=== PATIENT | female | born 1995 | race Caucasian/White ===

== ENCOUNTER 2020-04-27 13:28 | Emergency (ER) | payer OTHER ==
[~2020-04-27] VITALS: Ht 170.2 cm; Wt 73.9 kg
[2020-04-27] MEDS ORDERED: PRAZ2CAP PO (13:40)
[2020-04-27] MEDS ORDERED: VITAD400CA PO (13:40)
[2020-04-27] MEDS ORDERED: LEXA1TAB2 PO (13:40)
[2020-04-27] MEDS ORDERED: GABA600T4 PO (13:40)
[2020-04-27 14:56] LABS: BASO % 0.3 % (0.0-1.0); EOS % 0.5 % (0.0-3.0); HEMATOCRIT 38.3 % (36.0-47.0); HEMOGLOBIN 12.8 g/dl (12.0-15.5); LYMPH # 1.8 10^3/uL (1.5-5.0); LYMPH % 28.3 % (24.0-44.0); MEAN CORPUSCULAR HEMOGLOBIN 29.5 pg (27.0-33.0); MEAN CORPUSCULAR HGB CONC 33.4 g/dl (32.0-36.5); MEAN CORPUSCULAR VOLUME 88.2 fl (80.0-96.0); MONO # 0.4 10^3/uL (0.0-0.8); NEUTROPHILS % 64.7 % (36.0-66.0); PLATELET COUNT, AUTOMATED 215 10^3/uL (150-450); RED BLOOD COUNT 4.34 10^6/uL (4.00-5.40); WHITE BLOOD COUNT 6.2 10^3/uL (4.0-10.0)
[2020-04-27 15:17] LABS: ALBUMIN 3.9 GM/DL (3.2-5.2); BILIRUBIN,DIRECT 0.1 MG/DL (0.0-0.2); BILIRUBIN,TOTAL 0.4 MG/DL (0.2-1.0); TOTAL PROTEIN 7.4 GM/DL (6.4-8.2)
[2020-04-27] MEDS ORDERED: ISOVUE-370 76% 100ML VIAL As Ordered ONE (15:28)
[2020-04-27] MEDS ORDERED: KETOROLAC 30 MG/ML 1ML VIAL IV ONE (15:45)
[2020-04-27] MEDS ORDERED: NS 1,000 ML IV ONE (15:45)
--- NOTE | 2020-04-27 16:02 | REP ---
INDICATION: rlq pain, nausea, loss appetite COMPARISON: None. TECHNIQUE: CT Scan of the abdomen and pelvis was performed with intravenous administration of 100 cc of Isovue 370, without oral contrast. FINDINGS: Lung bases: Mild patchy atelectasis or infiltrate is seen in the left lower lobe. Liver: Normal Gallbladder: Unremarkable. Spleen: Normal. Adrenals: Normal. Pancreas: Normal. Kidneys: Normal. Small and large bowel: Unremarkable. Free fluid: Mild scattered free fluid is seen throughout the pelvis. Abdominal aorta: No aneurysm or dissection. Adenopathy: None. Appendix: Not inflamed. Osseous structures: Unremarkable. Pelvis: No mass. IMPRESSION: Mild patchy atelectasis or infiltrate left lower lobe. Mild scattered free fluid throughout the pelvis. No other acute abnormalities detected. <Electronically signed by Homero Rogers > 04/27/20 [id number]
--- NOTE | 2020-04-27 17:34 | REP ---
INDICATION: rlq, right sided pelvic pain. COMPARISON: CT abdomen and pelvis today. TECHNIQUE: Transabdominal and transvaginal scanning performed. FINDINGS: Uterine dimensions are 6.6 x 3.0 x 4.0 cm. Endometrial echo is 5 mm in AP dimension and centrally placed. The bladder measures 3.1 x 5.1 x 8.4 cm. The right ovary has dimensions of 3.6 x 1.8 x 1.3 cm. It's Doppler flow is normal with a resistive index of 0.33. The left ovary dimensions are 2.2 x 1.6 x 1.7 cm. It's Doppler flow is normal with a resistive index of 0.61 There is no adnexal mass identified. Mild free fluid is seen in the cul-de-sac. IMPRESSION: No torsion or adnexal mass. Mild free fluid. <Electronically signed by Homero Rogers > 04/27/20 [id number]
[2020-04-27] MEDS ORDERED: KETO10TAB PO (17:46)
[2020-04-27] MEDS ORDERED: ONDA4TAB6 PO (17:46)
[2020-04-27] MEDS ORDERED: AMOX500T PO (17:46)
[2020-04-27 17:58] VITALS: BP 125/69
== END 2020-04-27 18:14 | disposition home or self-care (01) ==
LOC: M ED 13:28
DX: R10.9 Unspecified abdominal pain (principal); R11.0 Nausea; J18.9 Pneumonia, unspecified organism; Z20.828 Contact with and (suspected) exposure to other viral communicable diseases; F33.9 Major depressive disorder, recurrent, unspecified; F41.9 Anxiety disorder, unspecified; M25.569 Pain in unspecified knee; Z79.899 Other long term (current) drug therapy
CPT/HCPCS: 74177; 76830; 76856; 80047; 80076; 83690; 84702; 85025; 93976; 96361; 96374; 99284; J1885; Q9967; U0003

== ENCOUNTER 2020-07-20 09:59 | Emergency (ER) | payer OTHER ==
[~2020-07-20] VITALS: Ht 170.2 cm; Wt 68.2 kg
[~2020-07-20 09:59] MED LIST: AMOX500T PO; GABA600T4 PO; KETO10TAB PO; LEXA1TAB2 PO; ONDA4TAB6 PO; PRAZ2CAP PO; VITAD400CA PO
[2020-07-20] MEDS ORDERED: MULTTAB20 PO (10:10)
[2020-07-20] MEDS ORDERED: NS 1,000 ML IV ONE (10:30)
[2020-07-20 10:47] LABS: BASO % 0.3 % (0.0-1.0); EOS # 0.1 10^3/uL (0.0-0.5); EOS % 0.7 % (0.0-3.0); HEMOGLOBIN 12.1 g/dl (12.0-15.5); LYMPH # 1.6 10^3/uL (1.5-5.0); LYMPH % 23.3 % (24.0-44.0); MEAN CORPUSCULAR HEMOGLOBIN 29.1 pg (27.0-33.0); MEAN CORPUSCULAR HGB CONC 33.6 g/dl (32.0-36.5); MEAN CORPUSCULAR VOLUME 86.5 fl (80.0-96.0); MONO # 0.4 10^3/uL (0.0-0.8); MONO % 5.7 % (2.0-8.0); NEUTROPHILS # 4.8 10^3/uL (1.5-8.5); NEUTROPHILS % 69.6 % (36.0-66.0); PLATELET COUNT, AUTOMATED 241 10^3/uL (150-450); RED BLOOD COUNT 4.16 10^6/uL (4.00-5.40); WHITE BLOOD COUNT 6.9 10^3/uL (4.0-10.0)
[2020-07-20 11:37] LABS: ALBUMIN 3.4 GM/DL (3.2-5.2); ALT/SGPT 24 U/L (12-78); BILIRUBIN,DIRECT < 0.1 MG/DL (0.0-0.2); BILIRUBIN,TOTAL < 0.1 MG/DL (0.2-1.0); BLOOD UREA NITROGEN 11 MG/DL (7-18); CALCIUM LEVEL 9.3 MG/DL (8.5-10.1); CARBON DIOXIDE LEVEL 26 MEQ/L (21-32); CHLORIDE LEVEL 104 MEQ/L (98-107); CREATININE FOR GFR 0.46 MG/DL (0.55-1.30); GLOMERULAR FILTRATION RATE > 60.0 (>60); GLUCOSE, FASTING 74 MG/DL (70-100); HCG, SERUM QUANTITATIVE 104940 MIU/ML; LIPASE 123 U/L (73-393); POTASSIUM SERUM 3.7 MEQ/L (3.5-5.1); SODIUM LEVEL 137 MEQ/L (136-145); TOTAL PROTEIN 7.2 GM/DL (6.4-8.2)
--- NOTE | 2020-07-20 11:47 | REP ---
INDICATION: abd pain, 9 weeks preg. COMPARISON: None. TECHNIQUE: Transabdominal obstetric sonography. FINDINGS: Scanning through the urine filled bladder and gravid uterus demonstrates a single living intrauterine gestation in a free-floating lie. The crown-rump length of the embryonic pole is 27 mm. This corresponds with a gestational age estimate of 9 weeks 3 days. heart rate is recorded at 172 beats per minute. The placenta is posterior fundal. There are 2 small anechoic fluid collections adjacent to the gestation sac. These measure 7 and 10 mm in greatest diameter respectively. No extra uterine abnormality is observed. IMPRESSION: Viable single intrauterine gestation at 9 weeks 3 days by crown-rump length. NAEL by sonography 19 February 2021. There are 2 small subchorionic fluid collections as above <Electronically signed by Papito Dial > 07/20/20 [id number]
--- NOTE | 2020-07-20 12:07 | REP ---
INDICATION: lower abd/umbilical pain. Umbilical pain that began while doing strenuous work. COMPARISON: Comparison CT study April 27, 2020. TECHNIQUE: . limited anterior abdominal wall sonography. Periumbilical region. FINDINGS: Scanning of the umbilicus at rest and with Valsalva is performed. There is a very small quantity of abdominal fat extending into the umbilicus through a 6 mm defect measured at rest. I note a similar appearance to the umbilicus on April 27, 2020 CT study. The defect is measured at 11 mm with Valsalva. No bowel involvement is seen. IMPRESSION: Findings consistent with a very small umbilical hernia trans Vera abdominal fat essentially unchanged from the CT appearance 27 April 2020. <Electronically signed by Papito Dial > 07/20/20 [id number]
[2020-07-20 13:04] VITALS: BP 120/71
== END 2020-07-20 13:09 | disposition home or self-care (01) ==
LOC: M ED 09:59
DX: Z32.01 Encounter for pregnancy test, result positive (principal); O26.891 Other specified pregnancy related conditions, first trimester; O99.891 Other specified diseases and conditions complicating pregnancy; O20.8 Other hemorrhage in early pregnancy; O99.341 Other mental disorders complicating pregnancy, first trimester; Z87.448 Personal history of other diseases of urinary system; Z3A.09 9 weeks gestation of pregnancy; Z79.899 Other long term (current) drug therapy

== ENCOUNTER → 2021-01-04 | Outpatient (CLI) | payer OTHER ==
[~2021-01-04] MED LIST changes: +MULTTAB20 PO
== END ==
LOC: M PLALAB 15:54
PROVIDERS: ATTEND Advanced Practice Midwife
DX: Z36.9 Encounter for antenatal screening, unspecified (principal); Z3A.33 33 weeks gestation of pregnancy